=== PATIENT | male | born 1945 | race Two or more races ===

== ENCOUNTER 2017-06-03 15:14 | Outpatient (CLI) | payer MEDICARE, OTHER ==
[~2017-06-03] VITALS: Ht 162.6 cm; Wt 81.2 kg
[~2017-06-03 15:14] MED LIST: ASPIRIN-LOW81 MG PO
[2017-06-03 15:37] VITALS: BP 132/96
[2017-06-03] MEDS ORDERED: OMEPRAZOLE40 M1 ORAL (16:00)
[2017-06-03] MEDS ORDERED: IBUPROFEN600 MG ORAL (16:00)
--- NOTE | 2017-06-03 16:04 | GI Initial Consult Note ---
History of Present Illness General Date patient seen: Jun 03, 2017 Time patient seen: 15:58 Referring physician: CHARLES Reason for Consultation: ROUTINE COLONOSCOPY Present Illness HPI 72 year old male patient referred by Dr. Salomon presents today for routine colonoscopy. Noted record that patient had EGD performed in 07/2012, however, the states a colonoscopy was also performed at the time. No record was able to found. He presents today with GERD, epigastric burning. Denies any unintentional weight loss or changes in dietary habits. No signs of abuse or neglect. Patient is not fall risk. Home Meds Reported Medications Ibuprofen* (MOTRIN*) 600 Mg Tablet, 200 MG ORAL FOUR TIMES A DAY, #30 TAB 0 Refills 06/03/17 Omeprazole (OMEPRAZOLE) 40 Mg Capsule.dr, 40 MG ORAL DAILY, CAP 06/03/17 Aspirin (Aspirin EC) 81 Mg Tabec, 81 MG PO DAILY 07/18/12 Med list reviewed/reconciled: Yes Allergies: Coded Allergies: No Known Allergies (Unverified , 07/18/12) Patient History PMH Narrative GERD Arthritis H. Pylori positive Social History: Reports: smoking - ex smoker, Denies: alcohol use, drug use, other Review of Systems All Other Systems: negative except mentioned in HPI Physical Exam Vital Signs Date Time Temp Pulse Resp B/P (MAP) Pulse Ox O2 Delivery O2 Flow Rate FiO2 06/03/17 15:37 97.4 76 16 132/96 96 Sp02 EP Interpretation: reviewed, normal General Appearance: well appearing, no apparent distress, alert Head: normocephalic EENT: PERRL/EOMI, normal ENT inspection Neck: supple Respiratory: normal breath sounds, no respiratory distress Cardiovascular: normal rate Gastrointestinal: normal inspection, non tender, soft, normal bowel sounds, non -distended Rectal: deferred Genitourinary: deferred Musculoskeletal: normal inspection, back normal Neurologic: normal inspection, alert, oriented x3, responsive Psychiatric: normal inspection, judgement/insight normal, memory normal Skin: normal inspection, normal color, no rash, warm/dry, palpation normal, well hydrated Lymphatic: normal inspection, no adenopathy GI: Plan Problems: (1) Helicobacter pylori (H. pylori) infection (2) GERD (gastroesophageal reflux disease) (3) Arthritis Plan EGD/colonoscopy scheduled for 06/11/17. - CLD & (Nulytely/Suprep/Movi-Prep) prep instructions given and acknowledged by patient. - NPO @ SD day prior procedure explained. Discussed with Dr. Cruz. Thank you for this patient referral, we will follow. Meg Sal N.P. Jun 03, 2017 16:04
== END 2017-06-03 16:08 | disposition home or self-care (01) ==
LOC: PAN 15:14
DX: K21.9 Gastro-esophageal reflux disease without esophagitis (principal); B96.81 Helicobacter pylori [H. pylori] as the cause of diseases classified elsewhere; Z79.82 Long term (current) use of aspirin; Z87.891 Personal history of nicotine dependence; M19.90 Unspecified osteoarthritis, unspecified site
CPT/HCPCS: 99201

== ENCOUNTER 2018-09-23 08:04 | Day surgery (SDC) | payer MEDICARE, OTHER ==
[2018-09-23] VITALS (11 sets, daily range): BP systolic 133–166; BP diastolic 85–101
[~2018-09-23] VITALS: Ht 162.6 cm; Wt 78.9 kg
--- NOTE | 2018-09-23 06:36 | Anethesia Preoperative Eval ---
Anesthesia Pre-op PMH/ROS General Date of Evaluation: Sep 23, 2018 Time of Evaluation: 06:31 Anesthesiologist: jose martin ASA Score: ASA 3 Mallampati Score Class I : Soft palate, uvula, fauces, pillars visible Class II: Soft palate, uvula, fauces visible Class III: Soft palate, base of uvula visible Class IV: Only hard plate visible Mallampati Classification: Class II Surgeon: jose juan Diagnosis: gerd, abdominal pain Surgical Procedure: egd/colonoscopy Anesthesia History: none Social History: current smoker Family History: no anesthesia problems Allergies: Coded Allergies: No Known Allergies (Unverified , 07/18/12) Medications: see eMAR Patient NPO?: Yes Past Medical History Pulmonary: Reports: other - pneumonia Gastrointestinal/Genitourinary: Reports: GERD, other - h.pylori infection, gastritis, left inguinal hepair repair, egd/colonoscopy Musculoskeletal/Integumentary: Reports: OA PSxH Narrative: left inguinal herniorrhaphy, egd/colonoscopy Anesthesia Pre-op Phys. Exam Physician Exam Last Vital Signs Date Time Temp Pulse Resp B/P (MAP) Pulse Ox O2 Delivery O2 Flow Rate FiO2 09/23/18 08:44 Room Air 09/23/18 08:38 97.8 70 18 137/89 96 Constitutional: NAD Neurologic: CN 2-12 intact Cardiovascular: RRR Respiratory: CTA Gastrointestinal: S/NT/ND Airway Exam Mallampati Score: Class II MO: limited Neck: flexible TMD: 2fb ROM: limited Anesthesia Pre-op A/P Risk Assessment & Plan Assessment: asa3 Plan: mac Status Change Before Surgery: No Pre-Antibiotics Drug: Celia Valladares MD Sep 23, 2018 06:36
[~2018-09-23 08:04] MED LIST changes: +Atropine Inj 1mg/10ml Syr IV PRN; +DiphenhydrAMINE 50mg/ml Inj IVP PRN; +IBUPROFEN600 MG ORAL; +Midazolam 2mg/2ml Inj IVP PRN; +OMEPRAZOLE40 M1 ORAL; +fentaNYL 100 mcg/2 mL IV PRN
[2018-09-23] MEDS ORDERED: LR 1000ml ONE (09:00)
[2018-09-23] MEDS ORDERED: Propofol 200mg/20ml IV ONE (09:00)
[2018-09-23] MEDS ORDERED: Lidocaine 1% MPF 10mg/ml 5ml ONE (09:00)
--- NOTE | 2018-09-23 09:10 | Short Stay Surgery H&P ---
History of Present Illness History of Present Illness Chief Complaint abdominal pains/GERDS/screening colonoscopy BRIONNA Cabrales is a 73 year old male who was admitted on for Gerd, Abdominal Pain/screening colon Patient History Allergies: Coded Allergies: No Known Allergies (Unverified , 07/18/12) PAST MEDICAL HISTORY: (1) S/P hernia surgery (2) Arthritis (3) Renal stones Medication History Scheduled Aspirin (Aspirin EC), 81 MG PO DAILY, (Reported) Omeprazole (Omeprazole), 40 MG ORAL DAILY, (Reported) Discontinued Medications Ibuprofen* (Motrin*), 200 MG ORAL FOUR TIMES A DAY, (Reported) Discontinued Reason: Pt stopped taking med Review of Systems Cardiovascular: Reports: no symptoms Respiratory: Reports: no symptoms Skeletal: 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 Summary of Findings See the reports Attestation Are the patient's medical conditions optimized for surgery? Attestation Response: yes Evelina Parker MD Sep 23, 2018 09:10
--- NOTE | 2018-09-23 09:11 | Pre-Procedure Note/Attestation ---
Pre-Procedure Note/Attestation Complete Prior to Procedure Planned Procedure: left Procedure Narrative: examination of the upper and the lower GI tract via endoscopy Indications for Procedure Pre-Operative Diagnosis: R/O gastriiis/Peptic ulcer/colon polyps Attestation I attest that I discussed the nature of the procedure; its benefits; risks and complications; and alternatives (and the risks and benefits of such alternatives ), prior to the procedure, with the patient (or the patient's legal labor union business representative). I attest that, if there was a reasonable possibility of needing a blood transfusion, the patient (or the patient's legal labor union business representative) was given the [facility] standardized written summary, pursuant to the [place] Blood Safety Act ([place] Health and Safety Code # 1645, as amended). I attest that I re-evaluated the patient just prior to the surgery and that there has been no change in the patient's H&P, except as documented below: Evelina Parker MD Sep 23, 2018 09:11
--- NOTE | 2018-09-23 09:48 | Endoscopy Procedure Note ---
Endoscopy Procedure Note General Indication for Procedure: GERDs and abdominal pains/screening colon Procedures Performed: EGD - Moderate size hiatal hernia with 3 mm deep friable ulceration at the lower esophagus biopsied. Mild gastritis biopsied., colonoscopy - Left colonic diverticulosis. 2/3 mm hyperplastic type polypoid lesion over the proximal ascending colon removed by cold biopsy forceps. Specimen: yes Pt Tolerated Procedure Well: Yes Estimated Blood Loss: none Anesthesia Anesthesiologist: Dr. Kelley Anesthesia: moderate sedation Medications Medication Given: see anesthesia record Inserted Devices Implant(s) used?: No Quality Quality of Bowel Preparation: Fair Did scope reach the cecum?: Yes Was there any complications?: No GI Core Measures 50 yrs or older w/o bx or poly: Yes 10yrs. F/U not recommended: No If not recommended, why?: 10 yrs. F/U needed: No 18 years or older w/prev. colo: No <3yrs. since last colonoscopy: No Med reason:<3 yrs.: System Reason:<3 yrs.: Last colonoscopy >= to 3yrs: Yes Evelina Parker MD Sep 23, 2018 09:48
--- NOTE | 2018-09-23 09:49 | Discharge Instructions ---
Discharge Instructions Discharge Instructions Follow up with: Visit the doctor in the office after 2 weeks For Congestive Heart Failure Reminder Report to your physician any weight gain of 5 pounds or more in one week. Evelina Parker MD Sep 23, 2018 09:49
--- NOTE | 2018-09-23 10:07 | Immediate Post-Op Evaluation ---
Immediate Post-Op Evalulation Immediate Post-Op Evalulation Procedure: egd/colonoscopy/bx Date of Evaluation: Sep 23, 2018 Time of Evaluation: 10:07 IV Fluids: 500ml lr Blood Products: none Estimated Blood Loss: negligible Blood Pressure Systolic: 166 Blood Pressure Diastolic: 85 Pulse Rate: 67 Respiratory Rate: 18 O2 Sat by Pulse Oximetry: 98 Temperature (Fahrenheit): 97.1 Pain Score (1-10): 0 Nausea: No Vomiting: No Complications none Patient Status: awake, reacts, patent Hydration Status: adequate Drug: Celia Valladares MD Sep 23, 2018 10:07
--- NOTE | 2018-09-23 10:09 | 48 Hour Post Anesthesia Eval ---
Post Anesthesia Evaluation Procedure: egd/colonoscopy/bx Date of Evaluation: Sep 23, 2018 Time of Evaluation: 10:09 Blood Pressure Systolic: 133 0: 90 Pulse Rate: 61 Respiratory Rate: 18 Temperature (Fahrenheit): 97.1 O2 Sat by Pulse Oximetry: 98 Airway: patent Nausea: No Vomiting: No Pain Intensity: 0 Hydration Status: adequate Cardiopulmonary Status: stable Mental Status/LOC: patient returned to baseline Post-Anesthesia Complications: none Follow-up care needed: N/A Celia Kelley MD Sep 23, 2018 10:09
--- NOTE | 2018-09-23 16:45 | Operative Note - Dictated ---
DATE OF OPERATION: 09/23/2018 SURGEON: Evelina Parker M.D. PROCEDURE: Total colonoscopy with polypectomy. PREOPERATIVE DIAGNOSIS: Screening colonoscopy. POSTOPERATIVE DIAGNOSES: 1. Evidence of left colonic diverticulosis. 2. Incidental findings of 3 mm hyperplastic-type polypoid lesion over the proximal ascending colon, which was removed with cold biopsy forceps, otherwise normal study. MEDICATION USED: Per Dr. Hines. INSTRUMENT: GIF Olympus videocolonoscope. DESCRIPTION OF PROCEDURE: The patient after arriving endoscopy unit, was told about risks and benefits of the procedure, which he accepted and signed the informed consent. He was then put on the left lateral decubitus position. After adequate IV sedation, the scope was gently passed through the anal area and careful examination of this section did not reveal any major pathology, hemorrhoids, ulceration, colitis, etc. At this time, the scope was passed through the rectosigmoid angle, introduced into the left descending colon which revealed evidence of scattered diverticular lesions of no great significance. Gradually, the scope was advanced towards the splenic flexure, then it was guided into the transverse colon, hepatic flexure, and subsequently advanced into the right colon all the way to the base of the cecum. An incidental finding was evidence of 2 to 3 mm hyperplastic-type looking benign polypoid lesion over the proximal ascending colon, which was grabbed with cold biopsy forceps in two occasions and totally removed. The site of the biopsy did not reveal any major bleeding at this time. As I mentioned, these lesions were quite benign. At this time, within 7 minutes, the scope was gradually pulled out and no other pathology was found. The colon cleanup was fair. The patient tolerated the procedure well and left the endoscopy room in a good condition. Evelina Parker M.D. DR: PENELOPE JOB#: [id number] CC:
--- NOTE | 2018-09-23 16:45 | Operative Note - Dictated ---
DATE OF OPERATION: 09/23/2018 SURGEON: Evelina Parker M.D. PROCEDURE: Esophagogastroduodenoscopy with biopsy. PREOPERATIVE DIAGNOSES: Abdominal pain, history of chronic gastroesophageal reflux. POSTOPERATIVE DIAGNOSES: 1. Moderate-sized hiatal hernia. 2. A 5 mm very friable ulceration rather deep over the lower esophagus, which was biopsied. Biopsy was also taken from the gastric body and it showed mild/moderate gastritis. MEDICATION USED: Per Dr. Kelley. INSTRUMENT: GIF Olympus upper GI video endoscope. DESCRIPTION OF PROCEDURE: The patient after arriving endoscopy unit, was told about risks and benefits of the procedure, which he accepted and signed informed consent. He was then put on the left lateral decubitus position. After adequate IV sedation, the scope was gently passed through the cricopharyngeal area, was lodged into the upper esophagus and gradually advanced towards gastroesophageal junction. The upper 2/3rd of the upper and mid esophagus was normal, however, upon reaching over the lower esophagus approximately 3 to 4 cm above the GE junction there was seen a 3 to 4 mm other deep very friable ulceration. It looked benign, however, it was biopsied. It was felt that it was secondary to gastroesophageal reflux possibly. At this point, the scope was advanced further where it passed through moderate-sized hiatal hernia. There was no any evidence of Porras's mucosa, however. The scope was then guided into the stomach. Gastric cavity was distended and it revealed that there was evidence of [id number] gastritis generally, but no ulceration, tumor, polyps, etc., was found. A retroflexion maneuver was also applied over the gastroesophageal junction, which basically did not reveal any other abnormalities except evidence of hiatal hernia. Finally, the scope was passed through the body and the antrum, introduced into the pylorus. First and second portion of duodenum were found to be normal. The scope was gradually pulled out at this time and it was noted that the ulcerated area over the lower esophagus was friable with a small leakage of blood and therefore it was washed out with epinephrine solution 1:10,000. There was no any active bleeding any further and the scope at this time was pulled out. The patient tolerated the procedure well. Said Miguel Angel Parker DR: LALITA JOB#: [id number] CC:
== END 2018-09-23 11:10 | disposition home or self-care (01) ==
LOC: GAS 08:04
DX: Z12.11 Encounter for screening for malignant neoplasm of colon (principal); K57.30 Diverticulosis of large intestine without perforation or abscess without bleeding; K63.5 Polyp of colon; D12.2 Benign neoplasm of ascending colon; K44.9 Diaphragmatic hernia without obstruction or gangrene; K22.10 Ulcer of esophagus without bleeding; M19.90 Unspecified osteoarthritis, unspecified site; K21.9 Gastro-esophageal reflux disease without esophagitis; Z87.442 Personal history of urinary calculi; F17.200 Nicotine dependence, unspecified, uncomplicated; K29.50 Unspecified chronic gastritis without bleeding
CPT/HCPCS: 43239; 45380; J0171; J2704; 94003; 94150